=== PATIENT | female | born 1985 | race Two or more races ===

== ENCOUNTER 2025-02-26 00:28 | Emergency (ER) | payer MEDICAID ==
[~2025-02-26] VITALS: Ht 165.1 cm; Wt 64.0 kg
[2025-02-26 00:29] VITALS: O2SAT 99
[2025-02-26] MEDS: IBUPROFEN 600MG TABLET PO ONE (03:47)
[2025-02-26] MEDS ORDERED: IBUP-1455 MT (06:02)
[2025-02-26 06:11] VITALS: BP 109/77; PULSE 76; RESP 16; TEMP 37.2; O2SAT 100
== END 2025-02-26 06:14 | disposition home or self-care (01) ==
LOC: ER 00:28
DX: S09.90XA Unspecified injury of head, initial encounter (principal); J45.909 Unspecified asthma, uncomplicated; W22.8XXA Striking against or struck by other objects, initial encounter; Y93.89 Activity, other specified; Y92.89 Other specified places as the place of occurrence of the external cause; Y99.8 Other external cause status
CPT/HCPCS: 99284